=== PATIENT | female | born 1980 | race Two or more races ===

== ENCOUNTER 2024-04-08 06:56 | Emergency (ER) | payer MEDICAID ==
[~2024-04-08] VITALS: Ht 157.5 cm; Wt 72.7 kg
[2024-04-08 07:01] VITALS: BP 126/75; PULSE 81; RESP 17; TEMP 98.3
[2024-04-08] MEDS ORDERED: AMOX250C4 PO (07:30)
[2024-04-08] MEDS: TraMADol HCL 50 MG TABLET PO ONE (08:07)
== END 2024-04-08 08:27 | disposition home or self-care (01) ==
LOC: EMS 06:59
DX: L03.012 Cellulitis of left finger (principal)
CPT/HCPCS: 10060; 99283

== ENCOUNTER 2024-06-07 22:22 | Emergency (ER) | payer MEDICAID ==
[~2024-06-07] VITALS: Ht 157.5 cm; Wt 81.1 kg
[~2024-06-07 22:22] MED LIST: AMOX250C4 PO
[2024-06-07 22:35] VITALS: TEMP 98.2
[2024-06-07 23:21] LABS: BASOPHILS % (AUTO) 0.8 % (0.0-2.0); EOSINOPHILS % (AUTO) 4.2 % (1.0-6.0); HEMATOCRIT 40.5 % (36-46); HEMOGLOBIN 13.1 g/dL (12.0-16.0); LYMPHOCYTES # (AUTO) 2.3 K/uL (1.0-4.8); LYMPHOCYTES % (AUTO) 23.6 % (22.0-44.0); MEAN CORPUSCULAR HEMOGLOBIN 29.2 pg (26.0-34.0); MEAN CORPUSCULAR HGB CONC 32.3 G/dL (31.0-37.0); MEAN CORPUSCULAR VOLUME 90 fL (80-100); MONOCYTES # (AUTO) 0.7 K/uL (0.1-1.0); MONOCYTES % (AUTO) 7.1 % (2.0-9.0); NEUTROPHILS # (AUTO) 6.3 K/uL (1.8-7.7); NEUTROPHILS % (AUTO) 64.3 % (40.0-70.0); PLATELET COUNT (AUTO) 396 K/uL (150-450); RED BLOOD CELL COUNT(AUTO) 4.48 MIL/uL (4.00-5.20); RED CELL DISTRIBUTION WIDTH 13.3 % (11.5-14.5); WHITE BLOOD COUNT (AUTO) 9.9 K/uL (4.5-11.0)
[2024-06-07 23:30] LABS: ANION GAP 3 mmol/L (8-16); CALCIUM, TOTAL 8.3 mg/dL (8.8-10.5); CARBON DIOXIDE 30 mmol/L (22-29); CHLORIDE 104 mmol/L (98-107); CREATININE 0.58 mg/dL (0.60-1.30); GLOMERULAR FILTR. RATE CALC > 60 mL/min (>60); GLUCOSE,RANDOM 81 mg/dL (70-110); POTASSIUM 3.8 mmol/L (3.5-5.1); SODIUM SERUM 137 mmol/L (136-145); UREA NITROGEN, BLOOD 9 mg/dL (7-18)
[2024-06-07] MEDS: SODIUM CHLORIDE 0.9% 1,000 ML IV ONE (23:51)
[2024-06-07] MEDS: ACETAMINOPHEN 500 MG TABLET PO ONE (23:51)
[2024-06-07] MEDS: DiphenhydrAMINE HCL 50 MG/ML VIAL IVP ONE (23:52)
[2024-06-07] MEDS: ONDANSETRON HCL 4 MG/2 ML VIAL IVP ONE (23:53)
[2024-06-07] MEDS: METOCLOPRAMIDE HCL 5 MG/ML 2 ML VIAL IVP ONE (23:53)
[2024-06-08] MEDS ORDERED: ACET-3385 PO (00:40)
[2024-06-08] MEDS ORDERED: IBUP-1492 PO (00:40)
[2024-06-08 00:45] VITALS: BP 119/64; PULSE 64; RESP 17
== END 2024-06-08 00:53 | disposition home or self-care (01) ==
LOC: EMS 22:22
DX: G43.909 Migraine, unspecified, not intractable, without status migrainosus (principal)
CPT/HCPCS: 99284; 96374; 96375; 96361; 80048; 84703; 85025; 36415; J1200; J2765; J2405; J7030